=== PATIENT | male | born 1985 | race Caucasian/White ===

== ENCOUNTER 2017-03-31 16:21 | Emergency (ER) | payer OTHER ==
[~2017-03-31] VITALS: Ht 162.6 cm; Wt 65.0 kg
--- NOTE | 2017-03-31 17:45 | PD ---
History of Present Illness Chief Complaint: Psychiatric Symptoms Time Seen by Provider: 17:30 Travel History International Travel<30 Days: No Contact w/Intl Traveler<30days: No Known affected area: No Legal Status Legal Status: Rios Act Rios Act Signed By: History of Present Illness: 31-year-old male with a history of cerebral palsy, [place] acted in a [facility] for taking 1 or 2 Xanax pills and drinking a sixpack of beer. Apparently the patient's ex-girlfriend and mother of his child, would not let him see his child. Patient states they are also broken up and he saw his ex- girlfriend on Facebook with another man. Patient admits to taking one or 2 Xanax but firmly denies any overdose attempt or desire to kill himself. He does admit to drinking a sixpack of beer at the time. At this point the patient is calm and pleasant and cooperative. His cognition is felt to be baseline. He is verbally carole for safety. He has no suicidal or homicidal ideation, plan or intent. No psychotic symptoms. He would like to return home and states he would never do anything to kill himself because of his child. [facility] Past Medical History Narrative Medical History of cerebral palsy Psychiatric History Psychiatric History Hx Psychiatric Treatment: Denied History of Inpatient Treatment: No Guns or firearms in home: No Social History Hx Alcohol Use: No Hx Tobacco Use: No Hx Substance Use: No Substance Use Type: Alcohol, Benzos (Valium,Xanax) Hx of Substance Use Treatment: No Review of Systems Except as stated in HPI: all other systems reviewed are Neg Exam Alert: Yes [place]: Person, Place, Date, Situation Mood: Calm Affect: Appropriate, Euthymic Speech: Clear, Logical Eye Contact: Normal Memory Intact: Immediate, Recent, Remote Insight/Judgement Adequate MDM Medical Decision Making Medical Record Reviewed: Yes Assessment/Plan In this physician's opinion, patient does not meet Rios act criteria and does not meet inpatient psychiatric hospitalization criteria. He recognizes some of his actions and threats may have been an appropriate but he repeatedly denies any desire to harm himself or anyone else. Diagnosis Primary Impression: Acute adjustment disorder with mixed disturbance of emotions and conduct Kai Gil MD March 31, 2017 17:45
--- NOTE | 2017-03-31 18:06 | PD ---
HPI Chief Complaint: Psychiatric Symptoms Time Seen by Provider: 18:03 Travel History International Travel<30 days: No Contact w/Intl Traveler<30days: No Traveled to known affect area: No History of Present Illness HPI 31-year-old male that presents to the ED for evaluation of psychiatric illness. Patient has a chronic history of cerebral palsy and apparently was seen at a hospital in [facility] in [place] and was Rios acted at the facility secondary to overdose to Xanax. Patient was medically cleared and was sent here for evaluation of BA. The psychiatrist had accepted this patient. Patient was brought here is an ED to ED transfer. No other medical complaints reported. Patient is in no acute distress. Patient does has chronic deformities to his lower legs from the cerebral palsy and cannot ambulate with the wheelchair. Patient denies any medical issues to me. [facility] Social History Alcohol Use: No Tobacco Use: No Substance Use: No Review of Systems Except as stated in HPI: all other systems reviewed are Neg Physical Exam Narrative GENERAL: SKIN: Warm and dry. HEAD: Atraumatic. Normocephalic. EYES: Pupils equal and round. No scleral icterus. No injection or drainage. ENT: No nasal bleeding or discharge. Mucous membranes pink and moist. Tongue is midline. No uvula deviation. NECK: Trachea midline. No JVD. CARDIOVASCULAR: Regular rate and rhythm. No murmurs, S3, S4. RESPIRATORY: No accessory muscle use. Clear to auscultation. Breath sounds equal bilaterally. GASTROINTESTINAL: Abdomen soft, non-tender, nondistended. Hepatic and splenic margins not palpable. MUSCULOSKELETAL: Extremities without clubbing, cyanosis, or edema. No obvious deformities. Full range of motion of the upper and lower extremities bilaterally. 2+ pulses bilaterally. NEUROLOGICAL: Awake and alert. No obvious cranial nerve deficits. Motor grossly within normal limits. Five out of 5 muscle strength in the arms and legs. Normal speech. PSYCHIATRIC: Appropriate mood and affect; insight and judgment normal. MDM Medical Decision Making Medical Screen Exam Complete: Yes Emergency Medical Condition: Yes Medical Record Reviewed: Yes Differential Diagnosis Depression versus suicidal ideation versus anxiety versus adjustment disorder versus mood disorder versus bipolar disorder versus schizophrenia versus paranoid disorder versus psychosis versus substance abuse versus alcohol abuse versus alcohol induced psychosis versus homicidality addition versus cutting versus personality disorder Narrative Course 31-year-old male that presents to the ED for evaluation of psych. Patient was properly examined and was found to have signs and symptoms consistent appears to be psychiatric illness. No sign of acute medical distress. Patient was already medically clear at a different facility. Okay to be seen by psych. Patient was in ED to ED transfer for psychiatry to evaluate for the Rios act. Diagnosis Primary Impression: Acute adjustment disorder with mixed disturbance of emotions and conduct Edin Longoria March 31, 2017 18:06
== END 2017-03-31 19:08 | disposition home or self-care (01) ==
LOC: NEPJ 16:21
DX: F43.25 Adjustment disorder with mixed disturbance of emotions and conduct (principal); G80.9 Cerebral palsy, unspecified
CPT/HCPCS: 99282